=== PATIENT | male | born 1990 | race Hispanic/Latino ===

== ENCOUNTER 2019-03-07 07:41 | Emergency (ER) | payer SELFPAY ==
[2019-03-07] MEDS ORDERED: IBUPROFEN 400 MG TAB ONE (08:05)
--- NOTE | 2019-03-07 08:41 | EDPHYS ---
Physician Documentation [facility] Name: Fran Olson Age: 28 yrs Sex: Male : 1990 Arrival Date: 03/07/2019 Time: 07:42 Bed 14 Private MD: ED Physician Catracho Sue HPI: 03/07 07:59 This 28 yrs old Male presents to ER via Unassigned with complaints of Ankle ania Injury, Ankle Swelling. 07:59 The patient presents with decreased range of motion, pain, swelling, tenderness. The ania complaints affect the left ankle. Onset: The symptoms/episode began/occurred yesterday. Context: The problem was sustained at home. Associated signs and symptoms: Pertinent positives: swelling. Modifying factors: The symptoms are alleviated by elevation of extremity, the symptoms are aggravated by weight bearing, movement. The patient has not experienced similar symptoms in the past. Historical: - Allergies: 07:45 No Known Allergies; rb1 - Home Meds: 07:45 None [Active]; rb1 - PMHx: 07:45 None; rb1 - PSHx: 07:45 None; rb1 - Immunization history:: Adult Immunizations up to date. - Ebola Screening: : Patient negative for fever greater than or equal to 101.5 degrees Fahrenheit, and additional compatible Ebola Virus Disease symptoms. - Social history:: Smoking status: Patient/guardian denies using tobacco. ROS: 07:59 Constitutional: Negative for fever, chills, and weight loss, Eyes: Negative for injury, ania pain, redness, and discharge, ENT: Negative for injury, pain, and discharge, Neck: Negative for injury, pain, and swelling, Cardiovascular: Negative for chest pain, palpitations, and edema, Respiratory: Negative for shortness of breath, cough, wheezing, and pleuritic chest pain, Abdomen/GI: Negative for abdominal pain, nausea, vomiting, diarrhea, and constipation, Back: Negative for injury and pain, : Negative for injury, bleeding, discharge, and swelling, Skin: Negative for injury, rash, and discoloration, Neuro: Negative for headache, weakness, numbness, tingling, and seizure, Psych: Negative for depression, anxiety, suicide ideation, homicidal ideation, and hallucinations, Allergy/Immunology: Negative for hives, rash, and allergies, Endocrine: Negative for neck swelling, polydipsia, polyuria, polyphagia, and marked weight changes. 07:59 MS/extremity: Positive for decreased range of motion, pain, swelling, tenderness, of the left lateral ankle. Exam: 07:59 Constitutional: This is a well developed, well nourished patient who is awake, alert, ania and in no acute distress. Head/Face: Normocephalic, atraumatic. Eyes: Pupils equal round and reactive to light, extra-ocular motions intact. Lids and lashes normal. Conjunctiva and sclera are non-icteric and not injected. Cornea within normal limits. Periorbital areas with no swelling, redness, or edema. ENT: Nares patent. No nasal discharge, no septal abnormalities noted. Tympanic membranes are normal and external auditory canals are clear. Oropharynx with no redness, swelling, or masses, exudates, or evidence of obstruction, uvula midline. Mucous membranes moist. Neck: Trachea midline, no thyromegaly or masses palpated, and no cervical lymphadenopathy. Supple, full range of motion without nuchal rigidity, or vertebral point tenderness. No Meningismus. Chest/axilla: Normal chest wall appearance and motion. Nontender with no deformity. No lesions are appreciated. Cardiovascular: Regular rate and rhythm with a normal S1 and S2. No gallops, murmurs, or rubs. Normal PMI, no JVD. No pulse deficits. Respiratory: Lungs have equal breath sounds bilaterally, clear to auscultation and percussion. No rales, rhonchi or wheezes noted. No increased work of breathing, no retractions or nasal flaring. Abdomen/GI: Soft, non-tender, with normal bowel sounds. No distension or tympany. No guarding or rebound. No evidence of tenderness throughout. Back: No spinal tenderness. No costovertebral tenderness. Full range of motion. Male : Normal genitalia with no discharge or lesions. Skin: Warm, dry with normal turgor. Normal color with no rashes, no lesions, and no evidence of cellulitis. Neuro: Awake and alert, GCS 15, oriented to person, place, time, and situation. Cranial nerves II-XII grossly intact. Motor strength 5/5 in all extremities. Sensory grossly intact. Cerebellar exam normal. Normal gait. Psych: Awake, alert, with orientation to person, place and time. Behavior, mood, and affect are within normal limits. 07:59 Musculoskeletal/extremity: Extremities: noted in the left lateral ankle: decreased ROM, pain. Vital Signs: 07:45 BP 123 / 86; Pulse 84; Resp 17; Temp 98.2(O); Pulse Ox 95% on R/A; Weight 127.01 kg rb1 (R); Height 5 ft. 8 in. (172.72 cm) (R); Pain 5/10; 08:27 BP 123 / 81; Pulse 83; Resp 14; Pulse Ox 99% on R/A; mh5 08:49 BP 111 / 76; Pulse 81; Resp 19; Pulse Ox 96% on R/A; Pain 5/10; rb1 07:45 Body Mass Index 42.57 (127.01 kg, 172.72 cm) rb1 MDM: 07:44 Patient medically screened. [facility] 03/07 07:59 Order name: Ankle Left 3 View XRAY [facility] 03/07 07:59 Order name: Walking boot; Complete Time: 08:23 [facility] 03/07 07:59 Order name: Ice pack; Complete Time: 08:01 [facility] Administered Medications: 08:10 Drug: Motrin 800 mg Route: PO; rb1 08:38 Follow up: Response: No adverse reaction rb1 Disposition: 03/07/19 08:40 Discharged to Home. Impression: Pain in left ankle and joints of left foot, Sprain of ankle. - Condition is Stable. - Discharge Instructions: Ankle Sprain, Ankle Pain. - Prescriptions for Ibuprofen 600 mg Oral Tablet - take 1 tablet by ORAL route every 6 hours As needed take with food; 30 tablet. Tylenol- Codeine #3 300-30 mg Oral Tablet - take 2 tablet by ORAL route every 6 hours As needed; 30 tablet. - Medication Reconciliation Form, Thank You Letter, Antibiotic Education, Prescription Opioid Use form. - Follow up: Lawson Rojas; When: 2 - 3 days; Reason: Recheck today's complaints, Re-evaluation by your physician. - Problem is new. - Symptoms have improved. Signatures: Dispatcher [employer] Catracho Concepcion MD MD cha Barber, Rebecca RN RN rb1 Corrections: (The following items were deleted from the chart) 08:00 07:55 Foot Left 3 View+RAD.RAD.BRZ ordered. [facility] 08:51 08:40 03/07/2019 08:40 Discharged to Home. Impression: Pain in left ankle and joints of rb1 left foot; Sprain of ankle. Condition is Stable. Discharge Instructions: Ankle Sprain, Ankle Pain. Prescriptions for Ibuprofen 600 mg Oral Tablet - take 1 tablet by ORAL route every 6 hours As needed take with food; 30 tablet, Tylenol-Codeine #3 300-30 mg Oral Tablet - take 2 tablet by ORAL route every 6 hours As needed; 30 tablet. and Forms are Medication Reconciliation Form, Thank You Letter, Antibiotic Education, Prescription Opioid Use. Follow up: Lawson Rojas; When: 2 - 3 days; Reason: Recheck today's complaints, Re-evaluation by your physician. Problem is new. Symptoms have improved. ania
--- NOTE | 2019-03-07 08:41 | ER ---
Nurse's Notes [facility] Name: Fran Olson Age: 28 yrs Sex: Male : 1990 Arrival Date: 03/07/2019 Time: 07:42 Bed 14 Private MD: Diagnosis: Pain in left ankle and joints of left foot;Sprain of ankle Presentation: 03/07 07:45 Presenting complaint: Patient states: Was stepping off of a trailer when he stepped rb1 into a hole in the yard and rolled his left ankle. Transition of care: patient was not received from another setting of care. Onset of symptoms was March 06, 2019. Risk Assessment: Do you want to hurt yourself or someone else? Patient reports no desire to harm self or others. Initial Sepsis Screen: Does the patient meet any 2 criteria? No. Patient's initial sepsis screen is negative. Does the patient have a suspected source of infection? No. Patient's initial sepsis screen is negative. Care prior to arrival: None. 07:45 Method Of Arrival: Wheelchair rb1 07:45 Acuity: ALFRED 3 rb1 Triage Assessment: 07:45 General: Appears in no apparent distress. comfortable, Behavior is calm, cooperative. rb1 Pain: Complains of pain in left lateral ankle Pain currently is 5 out of 10 on a pain scale. Pain began 1 day ago. Aggravated by weight bearing. Neuro: Level of Consciousness is awake, alert, obeys commands, Oriented to person, place, time, situation. Cardiovascular: Capillary refill < 3 seconds is brisk in bilateral toes. Respiratory: Airway is patent Respiratory effort is even, unlabored, Respiratory pattern is regular, symmetrical. GI: No signs and/or symptoms were reported involving the gastrointestinal system. : No signs and/or symptoms were reported regarding the genitourinary system. Derm: Bruising that is dark purple, on left lateral ankle. Musculoskeletal: Swelling present in left lateral ankle. Historical: - Allergies: 07:45 No Known Allergies; rb1 - Home Meds: 07:45 None [Active]; rb1 - PMHx: 07:45 None; rb1 - PSHx: 07:45 None; rb1 - Immunization history:: Adult Immunizations up to date. - Ebola Screening: : Patient negative for fever greater than or equal to 101.5 degrees Fahrenheit, and additional compatible Ebola Virus Disease symptoms. - Social history:: Smoking status: Patient/guardian denies using tobacco. Screenin:45 Abuse screen: Denies threats or abuse. Nutritional screening: No deficits noted. rb1 Tuberculosis screening: No symptoms or risk factors identified. Fall Risk None identified. Assessment: 07:45 General: See triage assessment. rb1 08:38 Reassessment: Patient appears in no apparent distress at this time. Patient and/or rb1 family updated on plan of care and expected duration. Pain level reassessed. Patient is alert, oriented x 3, equal unlabored respirations, skin warm/dry/pink. Vital Signs: 07:45 BP 123 / 86; Pulse 84; Resp 17; Temp 98.2(O); Pulse Ox 95% on R/A; Weight 127.01 kg rb1 (R); Height 5 ft. 8 in. (172.72 cm) (R); Pain 5/10; 08:27 BP 123 / 81; Pulse 83; Resp 14; Pulse Ox 99% on R/A; mh5 08:49 BP 111 / 76; Pulse 81; Resp 19; Pulse Ox 96% on R/A; Pain 5/10; rb1 07:45 Body Mass Index 42.57 (127.01 kg, 172.72 cm) rb1 ED Course: 07:42 Patient arrived in ED. as 07:43 Catracho Sue MD is Attending Physician. ania 07:45 Arm band placed on right wrist. rb1 07:45 Patient has correct armband on for positive identification. Bed in low position. Call rb1 light in reach. Side rails up X 1. Pulse ox on. NIBP on. 07:52 Chantal Issa, KHOI is Primary Nurse. rb1 08:18 Triage completed. rb1 08:24 walking boot. mh5 08:26 Ankle Left 3 View XRAY In Process Unspecified. EDMS 08:26 ICE PACK. mh5 08:40 Lawson Rojas MD is Referral Physician. ania 08:50 No provider procedures requiring assistance completed. Patient did not have IV access rb1 during this emergency room visit. Administered Medications: 08:10 Drug: Motrin 800 mg Route: PO; rb1 08:38 Follow up: Response: No adverse reaction rb1 Outcome: 08:40 Discharge ordered by . ania 08:50 Discharged to home via wheelchair, with significant other. rb1 08:50 Condition: stable 08:50 Discharge instructions given to patient, Instructed on discharge instructions, follow up and referral plans. medication usage, Demonstrated understanding of instructions, follow-up care, medications, Prescriptions given X 2. 08:51 Patient left the ED. rb1 Signatures: Dispatcher [employer] EDCatracho Rocha MD MD cha Martinez, Amelia as Barber, Rebecca, RN RN rb1 [facility]
[2019-03-07 08:59] VITALS: BP 111/76; TEMP 98.2; O2SAT 96
--- NOTE | 2019-03-07 10:16 | RAD REPORT ---
EXAM DESCRIPTION: RAD - Ankle Left 3 View - 03/07/2019 8:26 am CLINICAL HISTORY: PAIN COMPARISON: No comparisons FINDINGS: No fracture or dislocation evident. Tiny posterior calcaneal spur.
== END 2019-03-07 08:51 | disposition home or self-care (01) ==
LOC: ER 07:41
DX: M25.572 Pain in left ankle and joints of left foot (principal); S93.402A Sprain of unspecified ligament of left ankle, initial encounter; X50.1XXA Overexertion from prolonged static or awkward postures, initial encounter; Y93.89 Activity, other specified; Y92.9 Unspecified place or not applicable
CPT/HCPCS: 99284